=== PATIENT | male | born 1980 | race Caucasian/White ===

== ENCOUNTER 2016-06-23 08:55 | Emergency (ER) | payer MEDICAID, OTHER ==
[~2016-06-23] VITALS: Ht 167.6 cm; Wt 88.9 kg
[2016-06-23 08:59] VITALS: BP 138/62; PULSE 106; RESP 16; TEMP 97.4; O2SAT 98
--- NOTE | 2016-06-23 09:04 | NUR ---
Patient to ER bed 5 to gown for evaluation. Side rails up. Report given to [place] BUSCH.
--- NOTE | 2016-06-23 09:10 | NUR ---
DR ARIAS AT BEDSIDE FOR EVALUATION
--- NOTE | 2016-06-23 09:15 | NUR ---
CONSENT SIGNED FOR CT WITH CONTRAST
--- NOTE | 2016-06-23 09:16 | NUR ---
PT STATES THAT HE WAS RECENTLY DIAGNOSED WITH MONO AND LUPUS. STATES TWO WEEKS WITH BUMP IN RIGHT AXILLA. STATES JUST DISCOMFORT.
[2016-06-23] MEDS ORDERED: NACL 0.9% 1,000 ML IV ONE (09:30)
[2016-06-23 09:39] LABS: CALCIUM 8.7 mg/dL (8.4-11.0); POTASSIUM 4.3 mmol/L (3.5-5.1)
[2016-06-23 09:44] LABS: ALBUMIN 2.9 g/dL (3.4-4.8); TOTAL BILIRUBIN 0.5 mg/dL (0.0-1.0); TOTAL PROTEIN, SERUM 8.7 g/dL (6.4-8.3)
[2016-06-23 09:48] LABS: HEMATOCRIT 26.8 % (36-54); HEMOGLOBIN 8.9 g/dL (14.0-18.0); MEAN CORPUSCULAR HEMOGLOBIN 28 pg (27-31); MEAN CORPUSCULAR HGB CONC 33 % (32-36); MEAN CORPUSCULAR VOLUME 82 fL (79.0-98.0); PLATELET COUNT (AUTO) 203 K/uL (130-430); RED BLOOD CELL COUNT(AUTO) 3.25 MIL/uL (4.2-6.2); RED CELL DISTRIBUTION WIDTH 14.6 % (9.0-15.0)
[2016-06-23 09:50] LABS: WHITE BLOOD COUNT (AUTO) 3.1 K/uL (4.8-10.8)
[2016-06-23 10:17] LABS: ATYPICAL LYMPHOCYTES % 4 % (0-0); BAND % (MANUAL) 3 % (0-6); BASOPHILS % (MANUAL) 0 % (0-2); EOSINOPHILS % (MANUAL) 5 % (0-7); LYMPHOCYTES % (MANUAL) 24 % (20-46); MONOCYTES % (MANUAL) 14 % (0-11)
--- NOTE | 2016-06-23 10:25 | NUR ---
TAKEN TO RADIOLOGY VIA WHEELCHAIR
[2016-06-23] MEDS ORDERED: IOHEXOL 100 ML IV ONE (10:32)
--- NOTE | 2016-06-23 10:47 | NUR ---
RETURNED TO RADIOLOGY VIA WHEELCHAIR.
--- NOTE | 2016-06-23 11:10 | NUR ---
AWAITING TEST RESULTS, NO COMPLAINTS, RESTING QUIETLY
--- NOTE | 2016-06-23 11:42 | NUR ---
CARE ENDORSED TO SOFÍA
[2016-06-23 13:25] VITALS: BP 138/77; PULSE 78; RESP 14; TEMP 98.4; O2SAT 99
--- NOTE | 2016-06-23 13:25 | NUR ---
Patient given written and verbal discharge instructions and verbalizes understanding. ER MD Ha discussed with patient the results and treatment provided. Given copies of tests performed in ER. Patient in stable condition. ID arm band removed. IV catheter removed intact and dressing applied, no active bleeding. no Rx given. Patient educated on pain management and to follow up with PMD. Pain Scale 0/10 Opportunity for questions provided and answered.
== END 2016-06-23 13:25 | disposition home or self-care (01) ==
LOC: SED 08:55
DX: R59.0 Localized enlarged lymph nodes (principal); B27.90 Infectious mononucleosis, unspecified without complication; R16.1 Splenomegaly, not elsewhere classified; Z88.1 Allergy status to other antibiotic agents
CPT/HCPCS: 36415; 71260; 80053; 85007; 85027; 96360; 99285; J7030; Q9967